=== PATIENT | male | born 1960 | race American Indian/Alaskan Native ===

== ENCOUNTER 2017-05-07 02:11 | Inpatient (IN) | payer MEDICARE ==
--- NOTE | 2017-05-07 05:29 | XRay Report ---
FINAL REPORT EXAM: XR CHEST 1V AP HISTORY: Shortness of breath TECHNIQUE: AP portable view(s) of the chest obtained. PRIORS: 01/11/2017 FINDINGS: Mild patient rotation. No mediastinal shift. Unchanged cardiomegaly with unchanged central line projecting around the right atrium and extending from the inferior field of view. Blunting of the right greater than left costophrenic angle with ill-defined right greater than left basilar opacities. No pneumothorax or acute skeletal finding. IMPRESSION: Ill-defined bibasilar opacities with small pleural effusions appear similar to prior exam and may be secondary to heart failure and/or a superimposed acute process. Consider PA and lateral chest radiographic follow-up.
[2017-05-07 06:03] LABS: Alanine Aminotransferase 16 units/L (7-56); Albumin 4.5 g/dL (3.9-5)
[2017-05-07 06:08] LABS: Hematocrit 25.7 % (35.5-45.6); Hemoglobin 7.9 gm/dl (11.8-15.2); Red Blood Count 3.18 M/mm3 (3.65-5.03)
[2017-05-07 06:09] LABS: Mean Corpuscular HGB Conc 31 % (32-34); Mean Corpuscular Hemoglobin 25 pg (28-32); Mean Corpuscular Volume 81 fl (84-94); Platelet Count 212 K/mm3 (140-440); Red Cell Distribution Width 19.4 % (13.2-15.2)
[2017-05-07 06:10] LABS: Basophils % (Auto) 1.3 % (0.0-1.8); Eosinophils # (Auto) 0.2 K/mm3 (0.0-0.4); Eosinophils % (Auto) 6.7 % (0.0-4.3); Lymphocytes # (Auto) 0.4 K/mm3 (1.2-5.4); Monocytes # (Auto) 0.4 K/mm3 (0.0-0.8); Monocytes % (Auto) 10.7 % (0.0-7.3)
--- NOTE | 2017-05-07 06:21 | Emergency Department Report ---
ED Shortness of Breath HPI - General Chief Complaint: Dyspnea/Respdistress Stated Complaint: REGINALDO Time Seen by Provider: 05/07/17 04:37 Source: EMS Mode of arrival: Stretcher Limitations: No Limitations - History of Present Illness Initial Comments: Patient is complaining of shortness of breath over the last 4 days that has progressively gotten worse. Shortness of breath is worse on exertion. Patient missed his dialysis this week and the last time he had dialysis was last week . He said this was because he did not have any transportation. Patient is also complaining of chest tightness across his chest was on the left side of moderate to severe intensity and nonradiating with no aggravating or relieving factor. His nephrologists is in [facility] Complaint: shortness of breath -: Gradual Severity: moderate Consistency: constant Improves With: nothing Worsens With: exertion Known History Of: congestive heart failure - Related Data Home Medications Medication Instructions Recorded Confirmed Last Taken Sevelamer Carbonate 800 mg PO AC 01/30/16 01/11/17 1 Day Ago ~12/22/16 Calcitriol [Rocaltrol] 0.25 mcg PO QDAY 01/11/17 01/11/17 Unknown Carvedilol [Coreg] 6.25 mg PO BID 01/11/17 01/11/17 Unknown amLODIPine [Norvasc] 10 mg PO DAILY 01/11/17 01/11/17 Unknown Allergies Allergy/AdvReac Type Severity Reaction Status Date / Time No Known Allergies Allergy Verified 11/29/12 13:03 ED Review of Systems ROS: Stated complaint: REGINALDO Other details as noted in HPI Comment: All other systems reviewed and negative ED Past Medical Hx - Past Medical History Previous Medical History?: Yes Hx Hypertension: Yes Hx Heart Attack/AMI: No Hx Congestive Heart Failure: Yes Hx Diabetes: No Hx Deep Vein Thrombosis: No Hx Pulmonary Embolism: No Hx Renal Disease: Yes Hx Sickle Cell Disease: No Hx Seizures: No Hx Kidney Stones: No Hx Asthma: No Hx COPD: No Hx Tuberculosis: No Hx Dementia: No Hx HIV: No - Surgical History Past Surgical History?: Yes Hx Coronary Stent: No Hx Open Heart Surgery: No Hx Pacemaker: No Hx Internal Defibrillator: No Hx Cholecystectomy: No Hx Appendectomy: No Hx Breast Surgery: No Additional Surgical History: Left upper extremity AV fistula - Social History Smoking Status: Never Smoker Substance Use Type: None - Medications Home Medications: Home Medications Medication Instructions Recorded Confirmed Last Taken Type Sevelamer Carbonate 800 mg PO AC 01/30/16 01/11/17 1 Day Ago History ~12/22/16 Calcitriol [Rocaltrol] 0.25 mcg PO QDAY 01/11/17 01/11/17 Unknown History Carvedilol [Coreg] 6.25 mg PO BID 01/11/17 01/11/17 Unknown History amLODIPine [Norvasc] 10 mg PO DAILY 01/11/17 01/11/17 Unknown History ED Physical Exam - General Limitations: No Limitations General appearance: alert, in no apparent distress - Head Head exam: Present: atraumatic, normocephalic - Eye Eye exam: Present: normal appearance Pupils: Present: normal accommodation - ENT ENT exam: Present: mucous membranes moist, other (nasal congestion) - Neck Neck exam: Present: normal inspection - Respiratory Respiratory exam: Present: normal lung sounds bilaterally. Absent: respiratory distress - Cardiovascular Cardiovascular Exam: Present: regular rate, normal rhythm. Absent: systolic murmur, diastolic murmur, rubs, gallop - GI/Abdominal GI/Abdominal exam: Present: soft, distended (uniformly distended), normal bowel sounds - Rectal Rectal exam: Present: deferred - Extremities Exam Extremities exam: Present: normal inspection - Back Exam Back exam: Present: normal inspection - Neurological Exam Neurological exam: Present: alert, oriented X3 - Psychiatric Psychiatric exam: Present: normal affect, normal mood - Skin Skin exam: Present: warm, dry, intact, normal color. Absent: rash ED Course Vital Signs 05/07/17 03:03 Temperature 98.7 F Pulse Rate 74 Blood Pressure 186/100 O2 Sat by Pulse 99 Oximetry ED Medical Decision Making - Lab Data Result diagrams: 05/07/17 05:04 - EKG Data -: EKG Interpreted by Me EKG shows normal: sinus rhythm (normal), axis (normal), intervals (normal), QRS complexes (normal), ST-T waves (normal) - Radiology Data Radiology results: report reviewed - Medical Decision Making I spoke to Dr. Molina and accepted the patient for admission. I did tell her i was going to sign out the potassium level to my colleague for it to be checked Critical care attestation.: If time is entered above; I have spent that time in minutes in the direct care of this critically ill patient, excluding procedure time. ED Disposition Clinical Impression: CHF exacerbation Disposition: OP ADMIT IP TO THIS HOSP Condition: Stable Referrals: MARSHA DOMÍNGUEZ MD [Primary Care Provider] - 3-5 Days
[2017-05-07] MEDS ORDERED: LASIX IV ONE (06:55)
[2017-05-07 07:02] LABS: Bilirubin,Direct < 0.2 mg/dL (0-0.2)
[2017-05-07] MEDS ORDERED: SODIUM CHLORIDE FLUSH SYRINGE 10 ML IV PRN (07:31)
[2017-05-07] MEDS ORDERED: TYLENOL PO PRN (07:31)
[2017-05-07] MEDS ORDERED: ZOFRAN IV PRN (07:31)
[2017-05-07] MEDS ORDERED: COUMADIN PO ONE (07:34)
[2017-05-07 07:40] LABS: Calcium 9.7 mg/dL (8.4-10.2)
--- NOTE | 2017-05-07 07:42 | History and Physical Report ---
History of Present Illness Date of examination: 05/07/17 Date of admission: 05/08/15 Chief complaint: Shortness of breath with bilateral lower extremity edema History of present illness: 56 year old male with past medical hx of ESRD, non complaint with HD, normally per patient follows at [facility], HTN, CHF,recurrent DVT, presenting with shortness of breath, with last dialysis being last . He reports worsening chronic orthopenia, with noted hypoxia. Denies chest pain, nausea or vomiting. In the ER patient is noted to be visibly short of breath. And also with bilateral lower extremity edema. The patient reports that he goes to dialysis 1-3 times a week based on transportation availability. He is not sure about compliance with his medications. ROS Constitutional: No fever, fatigue or weight loss. Skin: No rash. Eyes: No recent vision problems or eye pain. ENT: No congestion, ear pain, or sore throat. Endocrine: No thyroid problems. Cardiovascular: No chest pain. Respiratory: Reports shortness of breath No cough, or wheezing. Gastrointestinal: No abdominal pain, nausea, vomiting, or diarrhea. Genitourinary: No dysuria. Musculoskeletal: No joint swelling. Reports lower extremity swelling Neurologic: No seizures. Hematologic: No unusual bruising or bleeding. Psychiatric: No psychiatric problems, hallucinations or depression. All other systems reviewed and otherwise negative. Past History Past Medical History: CAD, COPD, diabetes, ESRD, hypertension, pulmonary embolism Past Surgical History: Other (av graft) Social history: full code Family history: no significant family history Medications and Allergies Allergies Allergy/AdvReac Type Severity Reaction Status Date / Time No Known Allergies Allergy Verified 11/29/12 13:03 Home Medications Medication Instructions Recorded Confirmed Last Taken Type Sevelamer Carbonate 800 mg PO AC 01/30/16 01/11/17 1 Day Ago History ~12/22/16 Calcitriol [Rocaltrol] 0.25 mcg PO QDAY 01/11/17 01/11/17 Unknown History Carvedilol [Coreg] 6.25 mg PO BID 01/11/17 01/11/17 Unknown History amLODIPine [Norvasc] 10 mg PO DAILY 01/11/17 01/11/17 Unknown History Active Meds: Active Medications Acetaminophen (Tylenol) 650 mg PO Q4H PRN PRN Reason: Pain MILD(1-3)/Fever >100.5/DONALD Amlodipine Besylate (Norvasc) 10 mg PO DAILY [facility] Calcitriol (Rocaltrol) 0.25 mcg PO QDAY MU Carvedilol (Coreg) 6.25 mg PO BID MU Miscellaneous Medication (Sevelamer Carbonate) 2,400 mg PO AC MU Ondansetron HCl (Zofran) 4 mg IV Q8H PRN PRN Reason: Nausea And Vomiting Stop: 05/07/17 10:00 Sodium Chloride (Sodium Chloride Flush Syringe 10 Ml) 10 ml IV BID MU Sodium Chloride (Sodium Chloride Flush Syringe 10 Ml) 10 ml IV PRN PRN PRN Reason: LINE FLUSH Warfarin Sodium (Coumadin) 7.5 mg PO ONCE ONE; Protocol Stop: 05/07/17 07:35 Warfarin Sodium (Coumadin Pharmacy To Dose) 1 each PO PKCONSULT MU; Protocol Warfarin Sodium (Coumadin Pharmacy To Dose) 1 each PO PKCONSULT [facility] Exam - Physical Exam Narrative exam: VITAL SIGNS: Reviewed. GENERAL: The patient appeared well nourished and normally developed. Vital signs as documented. HEAD: No signs of head trauma. EYES: Pupils are equal. Extraocular motions intact. EARS: Hearing grossly intact. MOUTH: Oropharynx is normal. NECK: No adenopathy, no JVD. CHEST: Chest with crackles breath sounds bilaterally. No wheezes. CARDIAC: Regular rate and rhythm. S1 and S2, without murmurs, gallops, or rubs. VASCULAR:. 2+ Edema. Right forearm with positive treadmill Peripheral pulses normal and equal in all extremities. ABDOMEN: Soft, without detectable tenderness. No sign of distention. No rebound or guarding, and no masses palpated. Bowel Sounds normal. MUSCULOSKELETAL: Good range of motion of all major joints. Extremities without clubbing, cyanosis. 2+ edema bilateral lower action to NEUROLOGIC EXAM: Alert and oriented x 3. No focal sensory or strength deficits. Speech normal. Follows commands. PSYCHIATRIC: Mood normal. SKIN: Chronic venous changes bilaterally extremity. - Constitutional Vitals: Temp Pulse Resp BP Pulse Ox 98.7 F 74 186/100 99 05/07/17 03:03 05/07/17 03:03 05/07/17 03:03 05/07/17 03:03 Results - Labs CBC & Chem 7: 05/08/17 09:13 05/08/17 09:13 Labs: Laboratory Last Values WBC 3.5 K/mm3 (4.5-11.0) L 05/07/17 05:04 RBC 3.18 M/mm3 (3.65-5.03) L 05/07/17 05:04 Hgb 7.9 gm/dl (11.8-15.2) L 05/07/17 05:04 Hct 25.7 % (35.5-45.6) L 05/07/17 05:04 MCV 81 fl (84-94) L 05/07/17 05:04 MCH 25 pg (28-32) L 05/07/17 05:04 MCHC 31 % (32-34) L 05/07/17 05:04 RDW 19.4 % (13.2-15.2) H 05/07/17 05:04 Plt Count 212 K/mm3 (140-440) 05/07/17 05:04 Lymph % (Auto) 12.0 % (13.4-35.0) L 05/07/17 05:04 Robeson % (Auto) 10.7 % (0.0-7.3) H 05/07/17 05:04 Eos % (Auto) 6.7 % (0.0-4.3) H 05/07/17 05:04 Baso % (Auto) 1.3 % (0.0-1.8) 05/07/17 05:04 Lymph # 0.4 K/mm3 (1.2-5.4) L 05/07/17 05:04 Robeson # 0.4 K/mm3 (0.0-0.8) 05/07/17 05:04 Eos # 0.2 K/mm3 (0.0-0.4) 05/07/17 05:04 Baso # 0.0 K/mm3 (0.0-0.1) 05/07/17 05:04 Seg Neutrophils % 69.3 % (40.0-70.0) 05/07/17 05:04 Seg Neutrophils # 2.4 K/mm3 (1.8-7.7) 05/07/17 05:04 Total Bilirubin 0.40 mg/dL (0.1-1.2) 05/07/17 05:33 Direct Bilirubin < 0.2 mg/dL (0-0.2) 05/07/17 05:33 Indirect Bilirubin 0.2 mg/dL 05/07/17 05:33 AST 15 units/L (5-40) 05/07/17 05:33 ALT 16 units/L (7-56) 05/07/17 05:33 Alkaline Phosphatase 240 units/L (35-129) H 05/07/17 05:33 Troponin T 0.381 ng/mL (0.00-0.029) H* 05/07/17 05:04 NT-Pro-B Natriuret Pep 37234 pg/mL (0-900) H 05/07/17 05:33 Total Protein 7.9 g/dL (6.3-8.2) 05/07/17 05:33 Albumin 4.5 g/dL (3.9-5) 05/07/17 05:33 Albumin/Globulin Ratio 1.3 % 05/07/17 05:33 - Imaging and Cardiology Chest x-ray: image reviewed (pleural effusions-small) Assessment and Plan Assessment and plan: 56 year old male with past medical hx of ESRD, non complaint with HD, normally per patient follows at [facility], HTN, CHF presenting with shortness of breath, with last dialysis being last . He reports worsening chronic orthopenia, with noted hypoxia. Denies chest pain, nausea or vomiting. In the ER patient is noted to be visibly short of breath Acute on chronic Respiratory failure -with hypoxia, secondary to Missed dialysis Acute exacebation of Congestive heart failure, possible diastolic ESRD non complaint with HD- although claims secondary to transportation issues left forearm fistular with good thrill Moderate to sever protien calorie malnutrtion Chronic Tropenemia-No chest pain today Hypercoagulable state Anemia of chronic RENAL DISEASE. Hypertensive urgency with underlying renal disease Metabolic acidosis Plan: Admit to medicine unless Electrolytes dictate differently Discussed with Semiconductor Engineer, aware Potassium result not back yet, he will follow and arrange for dialysis Resume appropraite home medications Counselling on compliance 15 mins Advanace directivies discussed in detail Obtain ABG on room air Pharmacy to dose warfarin, monitor INR DVT/GI prophy The high probability of a clinically significant, sudden or life threatening deterioration of the [renal, pulmonary, cardiac] system(s) required my full and direct attention, intervention and personal management. The aggregate critical care time was [35] minutes. This time is in addition to time spent performing reported procedures but includes the following: [x] Data Review and interpretation [x] Patient assessment and monitoring of vital signs [x] Documentation [x] Medication orders and management Advance Directives: Yes Plan of care discussed with patient/family: Yes
[2017-05-07 07:56] LABS: Chol/HDL Ratio 2.5 %
[2017-05-07] MEDS ORDERED: NACL 0.9% 100 ML IV PRN (08:55)
[2017-05-07] MEDS: COREG PO SCH ×2 (10:30→21:19)
[2017-05-07] MEDS: PEPCID PO SCH (10:30)
[2017-05-07] MEDS: SODIUM CHLORIDE FLUSH SYRINGE 10 ML IV SCH ×2 (10:30→21:20)
[2017-05-07] MEDS: ROCALTROL PO SCH (10:30)
[2017-05-07] MEDS ORDERED: APRESOLINE IV PRN (10:30)
[2017-05-07] MEDS: NORVASC PO SCH (10:30)
[2017-05-07] MEDS ORDERED: CATHFLO IV STA (10:37)
[2017-05-07] MEDS: RENVELA PO SCH (11:30)
[2017-05-07] MEDS ORDERED: SEVELAMER CARBONATE 2400 MG PO SCH (11:30)
[2017-05-07] MEDS ORDERED: HEPARIN IV PRN (15:38)
[2017-05-07] MEDS ORDERED: NACL 0.9 (PRIMING MACHINE ONLY DIALYSIS) MC ONE (15:46)
[2017-05-07] MEDS: HEPARIN IV PRN (16:15)
--- NOTE | 2017-05-07 18:31 | Consultation ---
History of Present Illness - History of Present Illness Thank you for the consultation patient was evaluated today, at 8:45 in the morning Source of information; current chart was reviewed old records were also reviewed history obtained from patient History of presenting illness; Patient is a 56-year-old -[place] male who is currently in maintenance for dialysis but currently does not have an assigned clinic. Patient says that he goes to [facility] in time anywhere from 1-3 times a week depending on his transportation. He has been missing several dialysis treatment over time and presented to the hospital with complaints of shortness of breath and leg swelling. Current dialysis catheter is in the left leg he does not have any functioning access. No history of any fever or chills cough "congestion expectoration of any phlegm Progression was noted to be markedly elevated at 8 prompting this consultation. Patient denies using any form of nonsteroidal drugs Past medical history is significant for End-stage renal disease currently on maintenance hemodialysis Poor social support Anemia and end-stage renal disease Secondary hyperparathyroidism Financial issues Current allergies: Reviewed none Home medication present medications reviewed Social history patient unable to afford transportation oftentimes has transportation issues resulting is unable to dialyze Family history: Denies any history of renal platelet disorder Review of systems: Positive for some shortness of breath, that has been progressive for the last 4 days mostly worse after exertion. Last dialysis treatment was on last week Patient does complain of some leg cramps otherwise unremarkable for all the other system Labs and x-rays: Were reviewed from the current chart Physical examination General: No acute distress HEENT: Oral mucosa moist no pharyngeal erythema no pallor or icterus no uremic order Neck: Supple no evidence of any thyromegaly trachea midline no JVD Chest: Clear to auscultation no crackles are also wheezes anteriorly Heart: Regular rate and rhythm S1-S2 heard no S3-S4 Abdomen: Soft nontender no renal bruit no CVA tenderness no suprapubic fullness no organomegaly Extremity: Minimal edema dry skin no peripheral cyanosis pulses palpable, left femoral permacath not very well cared for hygiene is poor Neurological: Alert awake follows command grossly nonfocal examination Back: Nontender thoracolumbar spine Musculoskeletal: No joint effusion noted Skin: No petechial rash/noted Assessment and plan end-stage renal disease: Patient appeared to be volume overloaded and severely hyperkalemic received medical treatment in the ER hemodialysis was ordered stat Most of the issues that he has right now is resulting from poor financial status , transportation issues that needs to be sorted out patient does need to get to dialysis treatment for repeat Hyperkalemia will dialyze him with one K bath followed by a potassium level and then follow up labs in the morning Patient likely will require another hemodialysis treatment tomorrow morning Dietary counseling and education was done Monitor dialysis related labs including CBC CMP phosphorus PTH periodically catheter care: Very poor high risk for infection bacteremia sepsis counseled educated about catheter care lock up worker case planner to follow up on him Counseled and educated to get further education from [facility] and related links We'll continue to follow and make recommendations from renal standpoint. If you have any questions please feel free to contact me at [phone] Thank you for the consultation. Medications and Allergies Allergies Allergy/AdvReac Type Severity Reaction Status Date / Time No Known Allergies Allergy Verified 11/29/12 13:03 Home Medications Medication Instructions Recorded Confirmed Last Taken Type Sevelamer Carbonate 800 mg PO AC 01/30/16 01/11/17 1 Day Ago History ~12/22/16 Calcitriol [Rocaltrol] 0.25 mcg PO QDAY 01/11/17 01/11/17 Unknown History Carvedilol [Coreg] 6.25 mg PO BID 01/11/17 01/11/17 Unknown History amLODIPine [Norvasc] 10 mg PO DAILY 01/11/17 01/11/17 Unknown History Active Meds: Active Medications Acetaminophen (Tylenol) 650 mg PO Q4H PRN PRN Reason: Pain MILD(1-3)/Fever >100.5/DONALD Amlodipine Besylate (Norvasc) 10 mg PO DAILY [facility] Last Admin: 05/07/17 10:30 Dose: Not Given Calcitriol (Rocaltrol) 0.25 mcg PO QDAY [facility] Last Admin: 05/07/17 10:30 Dose: Not Given Carvedilol (Coreg) 6.25 mg PO BID [facility] Last Admin: 05/07/17 10:30 Dose: Not Given Famotidine (Pepcid) 20 mg PO QDAY [facility] Last Admin: 05/07/17 10:30 Dose: Not Given Heparin Sodium (Porcine) (Heparin) 5,000 unit IV BRITTA PRN PRN Reason: hemodialysis Last Admin: 05/07/17 16:15 Dose: 5,000 unit Hydralazine HCl (Apresoline) 10 mg IV Q4HR PRN PRN Reason: Hypertension Sodium Chloride (Nacl 0.9%) 100 mls @ 999 mls/hr IV BRITTA PRN PRN Reason: Hypotension Ondansetron HCl (Zofran) 4 mg IV Q8H PRN PRN Reason: Nausea And Vomiting Sevelamer Carbonate (Renvela) 2,[address] [facility] Last Admin: 05/07/17 11:30 Dose: Not Given Sodium Chloride (Sodium Chloride Flush Syringe 10 Ml) 10 ml IV BID [facility] Last Admin: 05/07/17 10:30 Dose: 10 ml Sodium Chloride (Sodium Chloride Flush Syringe 10 Ml) 10 ml IV PRN PRN PRN Reason: LINE FLUSH Warfarin Sodium (Coumadin) 7.5 mg PO ONCE ONE; Protocol Stop: 05/07/17 07:35 Warfarin Sodium (Coumadin Pharmacy To Dose) 1 each PO [facility] Exam - Vital Signs Vital signs: Vital Signs Pulse Resp Pulse Ox 74 14 98 05/07/17 02:17 05/07/17 02:17 05/07/17 02:17 Results - Lab Results 05/07/17 05:04 05/07/17 05:04 Most recent lab results Calcium 9.7 mg/dL (8.4-10.2) 05/07/17 05:04
[2017-05-07 21:03] LABS: INR 0.99 (0.87-1.13)
[2017-05-07] MEDS: COUMADIN PO SCH (21:53)
--- NOTE | 2017-05-08 00:10 | XRay Report ---
FINAL REPORT PROCEDURE: XR CHEST ROUTINE 2V TECHNIQUE: PA and lateral chest radiographs were obtained. CPT 91957 HISTORY: ab cxr COMPARISON: Earlier the same date FINDINGS: Heart: The heart size is prominent but stable. Mediastinum/Vessels: Normal. Lungs/Pleural space: Slight infiltrate right lower lung. Slight atelectasis left lower lung. Pleural plaque formation along the lateral right lower lung region.. Bony thorax: No acute osseous abnormality. Other: Central catheter overlying the region of the inferior vena cava/right atrium IMPRESSION: Right lower lung infiltrate with slight atelectasis left lower lung. Slight pleural plaque formation along lateral right lower lung region..
[2017-05-08 09:23] LABS: Basophils % (Auto) 0.6 % (0.0-1.8); Eosinophils # (Auto) 0.2 K/mm3 (0.0-0.4); Eosinophils % (Auto) 4.8 % (0.0-4.3); Hemoglobin 7.1 gm/dl (11.8-15.2); Lymphocytes # (Auto) 0.2 K/mm3 (1.2-5.4); Lymphocytes % (Auto) 4.6 % (13.4-35.0); Mean Corpuscular HGB Conc 31 % (32-34); Mean Corpuscular Volume 80 fl (84-94); Monocytes # (Auto) 0.5 K/mm3 (0.0-0.8); Monocytes % (Auto) 9.4 % (0.0-7.3); Platelet Count 174 K/mm3 (140-440); Red Blood Count 2.86 M/mm3 (3.65-5.03); Red Cell Distribution Width 18.9 % (13.2-15.2)
[2017-05-08 09:28] LABS: Mean Corpuscular Hemoglobin 25 pg (28-32)
[2017-05-08] MEDS: RENVELA PO SCH ×3 (09:33→16:30)
[2017-05-08] MEDS: ROCALTROL PO SCH (09:34)
[2017-05-08] MEDS: COREG PO SCH ×2 (09:34→21:31)
[2017-05-08] MEDS: PEPCID PO SCH (09:34)
[2017-05-08] MEDS: NORVASC PO SCH (09:34)
[2017-05-08] MEDS: SODIUM CHLORIDE FLUSH SYRINGE 10 ML IV SCH (09:35)
[2017-05-08 09:40] LABS: Calcium 9.4 mg/dL (8.4-10.2)
--- NOTE | 2017-05-08 11:17 | Progress Note ---
Assessment and Plan Assessment and plan: 56 year old male with past medical hx of ESRD, non complaint with HD, normally per patient follows at [facility], HTN, CHF presenting with shortness of breath, with last dialysis being last . He reports worsening chronic orthopenia, with noted hypoxia. Denies chest pain, nausea or vomiting. In the ER patient is noted to be visibly short of breath Acute on chronic Respiratory failure -with hypoxia, secondary to Missed dialysis -Improved Acute exacebation of Congestive heart failure, possible diastolic ESRD non complaint with HD- although claims secondary to transportation issues left forearm fistular with good thrill Moderate to sever protien calorie malnutrtion Chronic Tropenemia-No chest pain today Hyperkalemia Hypercoagulable state-subtherapeutic INR 0.99 Anemia of chronic RENAL DISEASE. Hypertensive urgency with underlying renal disease Metabolic acidosis Plan: Supportive care Doppler b/l lower ext [employer] Input noted Continue coumadin dosing. Resume appropriate home medications Counselling on compliance 15 mins Pharmacy to dose warfarin, monitor INR Discharge in AM if ok with Nephrology DVT/GI prophy History Interval history: Patient seen and examined, in no acute distress Hospitalist Physical - Physical exam Narrative exam: VITAL SIGNS: Reviewed. GENERAL: The patient appeared well nourished and normally developed. Vital signs as documented. HEAD: No signs of head trauma. EYES: Pupils are equal. Extraocular motions intact. EARS: Hearing grossly intact. MOUTH: Oropharynx is normal. NECK: No adenopathy, no JVD. CHEST: Chest with crackles breath sounds bilaterally. No wheezes. CARDIAC: Regular rate and rhythm. S1 and S2, without murmurs, gallops, or rubs. VASCULAR:. 2+ Edema. Right forearm with positive treadmill Peripheral pulses normal and equal in all extremities. ABDOMEN: Soft, without detectable tenderness. No sign of distention. No rebound or guarding, and no masses palpated. Bowel Sounds normal. MUSCULOSKELETAL: Good range of motion of all major joints. Extremities without clubbing, cyanosis. 2+ edema bilateral lower action to NEUROLOGIC EXAM: Alert and oriented x 3. No focal sensory or strength deficits. Speech normal. Follows commands. PSYCHIATRIC: Mood normal. SKIN: Chronic venous changes bilaterally extremity. - Constitutional Vitals: Temp Pulse Resp BP Pulse Ox 97.9 F 82 20 141/82 92 05/08/17 07:16 03/16/18 07:16 03/16/18 07:16 05/08/17 07:16 05/08/17 07:16 Results - Labs CBC & Chem 7: 05/08/17 09:13 05/08/17 09:13 Labs: Laboratory Last Values WBC 5.1 K/mm3 (4.5-11.0) 05/08/17 09:13 RBC 2.86 M/mm3 (3.65-5.03) L 05/08/17 09:13 Hgb 7.1 gm/dl (11.8-15.2) L 05/08/17 09:13 Hct 23.0 % (35.5-45.6) L 05/08/17 09:13 MCV 80 fl (84-94) L 05/08/17 09:13 MCH 25 pg (28-32) L 05/08/17 09:13 MCHC 31 % (32-34) L 05/08/17 09:13 RDW 18.9 % (13.2-15.2) H 05/08/17 09:13 Plt Count 174 K/mm3 (140-440) 05/08/17 09:13 Lymph % (Auto) 4.6 % (13.4-35.0) L 05/08/17 09:13 Garden % (Auto) 9.4 % (0.0-7.3) H 05/08/17 09:13 Eos % (Auto) 4.8 % (0.0-4.3) H 05/08/17 09:13 Baso % (Auto) 0.6 % (0.0-1.8) 05/08/17 09:13 Lymph # 0.2 K/mm3 (1.2-5.4) L 05/08/17 09:13 Garden # 0.5 K/mm3 (0.0-0.8) 05/08/17 09:13 Eos # 0.2 K/mm3 (0.0-0.4) 05/08/17 09:13 Baso # 0.0 K/mm3 (0.0-0.1) 05/08/17 09:13 Seg Neutrophils % 80.6 % (40.0-70.0) H 05/08/17 09:13 Seg Neutrophils # 4.1 K/mm3 (1.8-7.7) 05/08/17 09:13 PT 13.6 Sec. (12.2-14.9) 05/07/17 20:20 INR 0.99 (0.87-1.13) 05/07/17 20:20 Sodium 139 mmol/L (137-145) 05/08/17 09:13 Potassium 5.8 mmol/L (3.6-5.0) H D 05/08/17 09:13 Chloride 93.0 mmol/L (98-107) L 05/08/17 09:13 Carbon Dioxide 26 mmol/L (22-30) D 05/08/17 09:13 Anion Gap 26 mmol/L 05/08/17 09:13 BUN 83 mg/dL (9-20) H 05/08/17 09:13 Creatinine 15.6 mg/dL (0.8-1.5) H 05/08/17 09:13 Estimated GFR 4 ml/min 05/08/17 09:13 BUN/Creatinine Ratio 5 % 05/08/17 09:13 Glucose 110 mg/dL (75-100) H 05/08/17 09:13 Calcium 9.4 mg/dL (8.4-10.2) 05/08/17 09:13 Total Bilirubin 0.40 mg/dL (0.1-1.2) 05/07/17 05:33 Direct Bilirubin < 0.2 mg/dL (0-0.2) 05/07/17 05:33 Indirect Bilirubin 0.2 mg/dL 05/07/17 05:33 AST 15 units/L (5-40) 05/07/17 05:33 ALT 16 units/L (7-56) 05/07/17 05:33 Alkaline Phosphatase 240 units/L (35-129) H 05/07/17 05:33 Troponin T 0.381 ng/mL (0.00-0.029) H* 05/07/17 05:04 NT-Pro-B Natriuret Pep 88884 pg/mL (0-900) H 05/07/17 05:33 Total Protein 7.9 g/dL (6.3-8.2) 05/07/17 05:33 Albumin 4.5 g/dL (3.9-5) 05/07/17 05:33 Albumin/Globulin Ratio 1.3 % 05/07/17 05:33 Triglycerides 65 mg/dL (2-149) 05/07/17 05:04 Cholesterol 143 mg/dL (50-199) 05/07/17 05:04 LDL Cholesterol Direct 67 mg/dL (50-130) 05/07/17 05:04 HDL Cholesterol 57 mg/dL (40-59) 05/07/17 05:04 Cholesterol/HDL Ratio 2.50 % 05/07/17 05:04
--- NOTE | 2017-05-08 12:42 | Progress Note ---
Assessment and Plan Impression: * ESRD * Hyperkalemia * HTN * Non complaince * anemia in ESRD Plan: * HD q MWF and prn * strict i/os * fluid restriction * renal diet * daily lytes * uf as tolerated with hd * home per primary team Subjective Date of service: 05/08/17 Principal diagnosis: hyperkalemia Interval history: resting in bed today, no acute events Objective - Exam Narrative Exam: General: No acute distress HEENT: Oral mucosa moist no pharyngeal erythema no pallor or icterus no uremic order Neck: Supple no evidence of any thyromegaly trachea midline no JVD Chest: Clear to auscultation no crackles are also wheezes anteriorly Heart: Regular rate and rhythm S1-S2 heard no S3-S4 Abdomen: Soft nontender no renal bruit no CVA tenderness no suprapubic fullness no organomegaly Extremity: Minimal edema dry skin no peripheral cyanosis pulses palpable, left femoral permacath not very well cared for hygiene is poor Neurological: Alert awake follows command grossly nonfocal examination Back: Nontender thoracolumbar spine Musculoskeletal: No joint effusion noted Skin: No petechial rash/noted - Vital Signs Vital signs: Vital Signs - 12hr 05/08/17 05/08/17 05/08/17 04:01 05:15 07:16 Temperature 98.7 F 97.9 F Pulse Rate 84 90 82 Respiratory 20 20 Rate Blood Pressure 121/81 141/82 O2 Sat by Pulse 89 92 Oximetry 05/08/17 11:12 Temperature 97.9 F Pulse Rate 80 Respiratory 20 Rate Blood Pressure 146/86 O2 Sat by Pulse 95 Oximetry - Lab 05/08/17 09:13 05/08/17 09:13 Most recent lab results Calcium 9.4 mg/dL (8.4-10.2) 05/08/17 09:13
[2017-05-08] MEDS ORDERED: NACL 0.9 (PRIMING MACHINE ONLY DIALYSIS) MC ONE (14:15)
[2017-05-08] MEDS: HEPARIN IV PRN (16:01)
--- NOTE | 2017-05-08 17:41 | Vascular Lab Report ---
LOWER EXTREMITY VENOUS DUPLEX: REASON FOR EXAM: DVT. COMMENTS ON THE RIGHT: All veins visualized are freely compressible without evidence of internal echogenicity. Flow is spontaneous and phasic throughout. COMMENTS ON THE LEFT: All veins visualized are freely compressible without evidence of internal echogenicity. Flow is spontaneous and phasic throughout. IMPRESSION: No evidence of acute or chronic deep venous thrombosis in either lower extremity.
[2017-05-08] MEDS: COUMADIN PO SCH (18:14)
[2017-05-09] MEDS: PROVENTIL IH PRN ×2 (01:49→09:30)
[2017-05-09 06:21] LABS: Hematocrit 24.5 % (35.5-45.6); Hemoglobin 7.6 gm/dl (11.8-15.2); Mean Corpuscular HGB Conc 31 % (32-34); Mean Corpuscular Volume 82 fl (84-94); Platelet Count 184 K/mm3 (140-440); Red Blood Count 3.01 M/mm3 (3.65-5.03)
[2017-05-09 06:24] LABS: Mean Corpuscular Hemoglobin 25 pg (28-32)
[2017-05-09 06:30] LABS: Calcium 9.2 mg/dL (8.4-10.2)
[2017-05-09 06:31] LABS: INR 0.92 (0.87-1.13)
--- NOTE | 2017-05-09 08:29 | Discharge Summary ---
Providers - Providers Date of Admission: 05/07/17 06:59 Date of discharge: 05/09/17 Attending physician: KESHIA JORDAN 05/07/17 07:31 Consult to Physician [CONS] Stat Consulting Provider: LUIGI DENNIS Reason For Exam: missed dialysis for one week Place consult to:: NEPHRO Notified:: Andrew LAUREN Phone number called:: Was contact made?: Yes If yes, spoke with:: [place] service Time called:: 09:09 Primary care physician: MARSHA DOMÍNGUEZ Hospitalization Reason for admission: sob Condition: Stable Hospital course: This is a 56-year-old male who presented through the emergency room with complaints of dyspnea and lower extremity edema. Etiology is secondary to volume overload from medical noncompliance with missed hemodialysis treatments. Patient was also noted to have severe hyperkalemia with a potassium of 8.2. The patient was admitted and received appropriate hemodialysis with resolution of volume overload and hyperkalemia. The patient is felt to have received maximal hospital benefit and will discharge home after hemodialysis today. Dictated discharge time 32 minutes. Disposition: DC-01 TO HOME OR SELFCARE Time spent for discharge: 32 - Discharge Diagnoses (1) Accelerated essential hypertension Status: Acute (2) Anemia in chronic kidney disease Status: Acute (3) ESRD needing dialysis Status: Acute (4) Hyperkalemia Status: Acute Core Measure Documentation - Palliative Care Palliative Care/ Comfort Measures: Not Applicable - Core Measures Any of the following diagnoses?: none Exam - Constitutional Vitals: Temp Pulse Resp BP Pulse Ox 98.6 F 82 16 132/83 96 05/09/17 07:14 05/09/17 07:14 05/09/17 07:14 05/09/17 07:14 05/09/17 07:14 General appearance: Present: no acute distress, well-nourished - EENT Eyes: Present: PERRL ENT: hearing intact, clear oral mucosa - Neck Neck: Present: supple, normal ROM - Respiratory Respiratory effort: normal Respiratory: bilateral: CTA - Cardiovascular Heart Sounds: Present: S1 & S2. Absent: rub, click - Extremities Extremities: pulses symmetrical, No edema Peripheral Pulses: within normal limits - Abdominal General gastrointestinal: Present: soft, non-tender, non-distended, normal bowel sounds Male genitourinary: Present: normal - Integumentary Integumentary: Present: clear, warm, dry - Musculoskeletal Musculoskeletal: gait normal, strength equal bilaterally - Psychiatric Psychiatric: appropriate mood/affect, intact judgment & insight - Neurologic Neurologic: CNII-XII intact, moves all extremities Plan Activity: no restrictions Weight Bearing Status: Full Weight Bearing Diet: regular Follow up with: MARSHA DOMÍNGUEZ MD [Primary Care Provider] - 3-5 Days ALEKS RODGERS MD [Staff Physician] - 7 Days Forms: Warfarin Discharge Instruction Prescriptions: amLODIPine [Norvasc] 10 mg PO DAILY #30 tablet Calcitriol [Rocaltrol] 0.25 mcg PO QDAY #30 capsule Carvedilol [Coreg] 6.25 mg PO BID #60 tablet Famotidine [Pepcid] 20 mg PO QDAY #30 tablet
[2017-05-09] MEDS: RENVELA PO SCH (08:36)
[2017-05-09] MEDS: NORVASC PO SCH (10:30)
[2017-05-09] MEDS: COREG PO SCH (10:30)
[2017-05-09] MEDS: ROCALTROL PO SCH (10:35)
[2017-05-09] MEDS: PEPCID PO SCH (10:36)
[2017-05-09] MEDS: SODIUM CHLORIDE FLUSH SYRINGE 10 ML IV SCH (10:37)
--- NOTE | 2017-05-09 12:02 | Progress Note ---
Assessment and Plan Impression: * ESRD * Hyperkalemia * HTN * Non complaince * anemia in ESRD Plan: * HD q MWF and today * strict i/os * fluid restriction * renal diet * daily lytes * uf as tolerated with hd * home per primary team Subjective Date of service: 05/09/17 Principal diagnosis: hyperkalemia Interval history: resting in bed today, no acute events Objective - Exam Narrative Exam: General: No acute distress HEENT: Oral mucosa moist no pharyngeal erythema no pallor or icterus no uremic order Neck: Supple no evidence of any thyromegaly trachea midline no JVD Chest: Clear to auscultation no crackles are also wheezes anteriorly Heart: Regular rate and rhythm S1-S2 heard no S3-S4 Abdomen: Soft nontender no renal bruit no CVA tenderness no suprapubic fullness no organomegaly Extremity: Minimal edema dry skin no peripheral cyanosis pulses palpable, left femoral permacath not very well cared for hygiene is poor Neurological: Alert awake follows command grossly nonfocal examination Back: Nontender thoracolumbar spine Musculoskeletal: No joint effusion noted Skin: No petechial rash/noted - Vital Signs Vital signs: Vital Signs - 12hr 05/09/17 05/09/17 05/09/17 00:44 01:26 01:53 Temperature 99.1 F Pulse Rate 87 Pulse Rate [ 82 Anterior Bilateral Lower Lobe] Respiratory 18 Rate Respiratory 17 Rate [Anterior Bilateral Lower Lobe] Blood Pressure 87/54 O2 Sat by Pulse 93 92 Oximetry 05/09/17 05/09/17 05/09/17 02:00 05:09 05:10 Temperature 98.9 F Pulse Rate 84 82 Pulse Rate [ 86 Anterior Bilateral Lower Lobe] Respiratory 18 Rate Respiratory 18 Rate [Anterior Bilateral Lower Lobe] Blood Pressure 113/80 O2 Sat by Pulse 94 95 Oximetry 05/09/17 05/09/17 05/09/17 07:14 09:31 09:38 Temperature 98.6 F Pulse Rate 82 Pulse Rate [ 83 Anterior Bilateral Lower Lobe] Respiratory 16 Rate Respiratory 21 Rate [Anterior Bilateral Lower Lobe] Blood Pressure 132/83 O2 Sat by Pulse 96 93 Oximetry 05/09/17 09:40 Temperature Pulse Rate Pulse Rate [ 74 Anterior Bilateral Lower Lobe] Respiratory Rate Respiratory 19 Rate [Anterior Bilateral Lower Lobe] Blood Pressure O2 Sat by Pulse Oximetry - Lab 05/09/17 05:10 05/09/17 05:10 Most recent lab results Calcium 9.2 mg/dL (8.4-10.2) 05/09/17 05:10
[2017-05-09 16:20] VITALS: BP 118/78
[2017-05-09] MEDS: HEPARIN IV PRN (16:54)
== END 2017-05-09 17:34 | disposition home or self-care (01) | DRG 291 ==
LOC: ED 02:11 → 4A 06:59
PROVIDERS: ADMIT Internal Medicine; ATTEND Hospitalist
PROC: 5A1D70Z Performance of Urinary Filtration, Intermittent, Less than 6 Hours Per Day (ICD-10-PCS; principal; 2017-05-08)
PROC: 5A1D70Z Performance of Urinary Filtration, Intermittent, Less than 6 Hours Per Day (ICD-10-PCS; 2017-05-09)
DX: I13.2 Hypertensive heart and chronic kidney disease with heart failure and with stage 5 chronic kidney disease, or end stage renal disease (principal); I50.31 Acute diastolic (congestive) heart failure; N18.6 End stage renal disease; E43 Unspecified severe protein-calorie malnutrition; J96.21 Acute and chronic respiratory failure with hypoxia; D68.59 Other primary thrombophilia; E87.2 Acidosis; Z99.2 Dependence on renal dialysis; Z68.26 Body mass index [BMI] 26.0-26.9, adult; D63.1 Anemia in chronic kidney disease; I16.0 Hypertensive urgency; E87.5 Hyperkalemia
CPT/HCPCS: 36415; 71045; 71046; 80048; 80061; 80074; 83880; 84484; 85025; 85027; 85610; 87040; 93005; 93010; 93970; 94640; 94760; 96374; J1644; J1940; J2997; J7030